=== PATIENT | female | born 1960 | race Caucasian/White ===

== ENCOUNTER 2023-11-06 18:17 | Inpatient (IN) | payer OTHER, MEDICAID, SELFPAY ==
[2023-11-06] VITALS (17 sets, daily range): BP systolic 134–160; BP diastolic 69–87; PULSE 71; RESP 18; TEMP 36.7; O2SAT 95–100
--- NOTE | ~2023-11-06 | US_ITS ---
EXAMINATION: US venous doppler LE RT DATE: 11/06/2023 22:42 INDICATION: Right lower limb pain and swelling. TECHNIQUE: Grayscale ultrasound images without and with compression and Doppler ultrasound images of the right lower extremity veins were obtained. COMPARISON: None. FINDINGS: The visualized portions of right common femoral vein, profunda (deep) femoral vein, femoral vein, pop liteal vein, peroneal veins, posterior tibial veins, and greater saphenous vein outflow are patent. IMPRESSION: 1. No deep venous thrombosis. Reviewed, dictated and finalized at location E.
--- NOTE | ~2023-11-06 | CT_ITS ---
EXAMINATION: CT ankle RT w con DATE: 11/06/2023 22:53 INDICATION: Right ankle swelling and erythema. TECHNIQUE: Computed tomography (CT) of the right ankle was performed with 100 mL Omnipaque 350 intrav enous contrast. Automated exposure control and iterative reconstruction technique were employed. The dose-length product was 441.71 mGy-cm. COMPARISON: None FINDINGS: There is a comminuted fracture of the talus. The main distal fracture fragment demonstrates 3 mm superior displacement. Internal fixation is seen with multiple screws. There is mild incongruen ce of the articular surface of the talar dome. There are bone fragments distal to medial malleolus. T here is a comminuted fractured of distal fibula. The main distal fracture fragment demonstrates 3 mm posterior displacement. There is internal fixation with plate and screws. There is a skin defect post erior to the Achilles tendon. There is soft tissue swelling about the ankle. IMPRESSION: 1. Comminuted fracture of talus with internal fixation. 2. Comminuted fractured of distal fibula with internal fixation. 3. No specific evidence of osteomyelitis. Reviewed, dictated and finalized at location E.
[2023-11-06] MEDS: MORPHINE SULFATE (*CRX) 4 MG/ML INJ IV PUSH (21:26)
[2023-11-06] MEDS: ONDANSETRON INJ 4 MG/2 ML VIAL IV PUSH (21:26)
--- NOTE | 2023-11-06 21:27 | PC.NURSE ---
blood cultures x 2 draw. 1st set left ac and 2nd set rt ac. Lora label sent to lab with blood cultures.
[2023-11-06 21:32] LABS: Basophils Percent Auto 0.3 % (0.2-1.2); Eosinophils Absolute Auto 0.2 K/mm3 (0-0.3); Hematocrit 38.1 % (37.0-47.0); Hemoglobin 11.8 g/dL (12.0-15.0); Immature Granulocyte Absolute 0.02 K/mm3 (0.00-0.031); Immature Granulocyte Percent A 0.2 % (0-0.5); Lymphocytes Absolute Auto 3.78 K/mm3 (0.9-3.2); Lymphocytes Percent Auto 42.8 % (18.3-44.2); Mean Corpuscular Hemoglobin 29.9 pg (26-34); Mean Corpuscular Volume 96.5 fl (80-100); Mean Platelet Volume 9.1 fl (7.4-10.4); Monocytes Absolute Auto 0.7 K/mm3 (0.1-0.6); Neutrophils Absolute Auto 4.1 K/mm3 (1.3-6.7); Neutrophils Percent Auto 46.7 % (45.5-73.1); Platelet Count Result 212 k/mm3 (150-375); Red Blood Count 3.95 M/mm3 (4.2-5.4); Red Cell Distribution Width 14.6 % (11.5-14.5); White Blood Count 8.8 K/mm3 (4.5-10.0)
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
[2023-11-06 21:57] LABS: CRP < 0.5 mg/dL (<1.0)
[2023-11-06 22:11] LABS: Lactic Acid Reflex 0.6 mmol/L (0.7-2.0)
[2023-11-06 22:36] LABS: Erythrocyte Sedimentation Rate 29 mm/hr (0-20)
[2023-11-06 22:45] LABS: Anion Gap 7 mmol/L (4-12); Blood Urea Nitrogen 15 mg/dL (7-17); Carbon Dioxide 28 mmol/L (22-30); Chloride 104 mmol/L (98-107); Estimated CRCL calculation 73 ml/min; Estimated Glomerular Filt Rate > 60; Glucose 90 mg/dL (65-110); Potassium 3.6 mmol/L (3.4-5.0); Sodium 139 mmol/L (137-145)
[2023-11-06 22:47] LABS: Estimated CRCL calculation 65 ml/min; Estimated Glomerular Filt Rate > 60
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
[2023-11-07] MEDS: VANCOMYCIN 1,500 MG/NS 500 ML 1,500 MG/500 ML BAG 250 MG IVPB ×2 (00:52→18:08)
[2023-11-07] MEDS: SODIUM CHLORIDE 0.9% IV 1,000 ML 100 ML IV CONT ×2 (00:56→11:06)
[2023-11-07] MEDS: MORPHINE SULFATE (*CRX) 4 MG/ML INJ IV PUSH ×6 (01:02→20:11)
[2023-11-07 01:27] VITALS: BP 146/76; PULSE 69; RESP 18; O2SAT 95
[2023-11-07 01:37] VITALS: BP 155/65; PULSE 75; RESP 18; TEMP 36.8; O2SAT 100; BMI 30.3
--- NOTE | 2023-11-07 01:39 | ADMGEN ---
This patient, Maira Maloney, was admitted to 2 Medical Room 259-. Patient/family oriented to hospital policies and general routines including ID bracelet, bed and alarms, visiting hours, pain management, procedures, bathroom and other care routines, personal items, smoking policy, room service/diet, and visiting hours. Information on how to activate the Rapid Response Team has been discussed. Patient/Family are encouraged to report perceived risks to care and to ask questions if they do not understand what they are told or what they should do.
[2023-11-07 01:40] LABS: Alanine Aminotransferase 13 U/L (6-35); Albumin Level 3.4 g/dL (3.5-5.1); Alkaline Phosphatase 194 U/L (38-126); Anion Gap 7 mmol/L (4-12); Aspartate Amino Transferase 22 U/L (14-36); Bilirubin,Total 0.4 mg/dL (0.2-1.3); Blood Urea Nitrogen 14 mg/dL (7-17); Calcium 9.7 mg/dL (8.4-10.2); Carbon Dioxide 27 mmol/L (22-30); Chloride 105 mmol/L (98-107); Estimated CRCL calculation 73 ml/min; Estimated Glomerular Filt Rate > 60; Glucose 92 mg/dL (65-110); Potassium 3.8 mmol/L (3.4-5.0); Sodium 139 mmol/L (137-145)
[2023-11-07 05:25] VITALS: BP 122/67; PULSE 64; RESP 18; TEMP 36.6; O2SAT 93
[2023-11-07] MEDS: PANTOPRAZOLE 40 MG TABLET PO (08:02)
[2023-11-07] MEDS: ENOXAPARIN 40 MG/0.4 ML SYRINGE SUB-Q (08:02)
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
[2023-11-07 08:56] LABS: Basophils Percent Auto 0.4 % (0.2-1.2); Eosinophils Absolute Auto 0.2 K/mm3 (0-0.3); Eosinophils Percent Auto 2.5 % (0-4.4); Hematocrit 35.6 % (37.0-47.0); Hemoglobin 10.9 g/dL (12.0-15.0); Immature Granulocyte Absolute 0.02 K/mm3 (0.00-0.031); Immature Granulocyte Percent A 0.3 % (0-0.5); Lymphocytes Absolute Auto 3.26 K/mm3 (0.9-3.2); Lymphocytes Percent Auto 47.3 % (18.3-44.2); Mean Corpuscular HGB Conc 30.6 g/dl (32-36); Mean Corpuscular Hemoglobin 30.1 pg (26-34); Mean Corpuscular Volume 98.3 fl (80-100); Mean Platelet Volume 9.2 fl (7.4-10.4); Monocytes Absolute Auto 0.6 K/mm3 (0.1-0.6); Monocytes Percent Auto 9.3 % (2.6-8.5); Neutrophils Absolute Auto 2.8 K/mm3 (1.3-6.7); Neutrophils Percent Auto 40.2 % (45.5-73.1); Platelet Count Result 194 k/mm3 (150-375); Red Blood Count 3.62 M/mm3 (4.2-5.4); Red Cell Distribution Width 14.6 % (11.5-14.5); White Blood Count 6.9 K/mm3 (4.5-10.0)
[2023-11-07] MEDS: ASPIRIN 81 MG ENTERIC TABLET PO (08:58)
[2023-11-07 09:05] LABS: Alanine Aminotransferase 12 U/L (6-35); Albumin Level 3.3 g/dL (3.5-5.1); Alkaline Phosphatase 185 U/L (38-126); Anion Gap 5 mmol/L (4-12); Aspartate Amino Transferase 20 U/L (14-36); Bilirubin,Total 0.4 mg/dL (0.2-1.3); Blood Urea Nitrogen 13 mg/dL (7-17); Calcium 9.2 mg/dL (8.4-10.2); Carbon Dioxide 27 mmol/L (22-30); Chloride 108 mmol/L (98-107); Estimated CRCL calculation 85 ml/min; Estimated Glomerular Filt Rate > 60; Glucose 86 mg/dL (65-110); Potassium 3.8 mmol/L (3.4-5.0); Sodium 140 mmol/L (137-145)
[2023-11-07 14:00] VITALS: BP 126/63; PULSE 72; RESP 14; TEMP 36.8; O2SAT 94
[2023-11-07] MEDS: ACETAMINOPHEN 325 MG TABLET 650 MG PO (16:28)
[2023-11-07] MEDS: CITALOPRAM HYDROBROMIDE 20 MG TABLET PO (20:10)
[2023-11-07 21:18] VITALS: BP 152/68; PULSE 61; RESP 20; TEMP 36.5; O2SAT 99
[2023-11-07 21:38] LABS: Hemoglobin A1C 4.5 % (<5.7)
[2023-11-07] MEDS: HYDROcodone/acetaminophen (*CRX) 5-325 MG TABLET 1 TAB PO (22:40)
[2023-11-08] MEDS: SODIUM CHLORIDE 0.9% IV 1,000 ML 100 ML IV CONT ×3 (00:07→23:32)
[2023-11-08] MEDS: MORPHINE SULFATE (*CRX) 4 MG/ML INJ IV PUSH ×5 (00:08→21:54)
[2023-11-08 01:09] LABS: Alanine Aminotransferase 13 U/L (6-35); Albumin Level 3.1 g/dL (3.5-5.1); Alkaline Phosphatase 143 U/L (38-126); Anion Gap 3 mmol/L (4-12); Aspartate Amino Transferase 24 U/L (14-36); Bilirubin,Total 0.4 mg/dL (0.2-1.3); Blood Urea Nitrogen 13 mg/dL (7-17); Calcium 9.3 mg/dL (8.4-10.2); Carbon Dioxide 30 mmol/L (22-30); Chloride 106 mmol/L (98-107); Estimated CRCL calculation 74 ml/min; Estimated Glomerular Filt Rate > 60; Glucose 89 mg/dL (65-110); Sodium 139 mmol/L (137-145)
[2023-11-08] MEDS: GABAPENTIN 300 MG CAPSULE PO ×2 (03:34→20:20)
[2023-11-08 06:00] VITALS: BP 150/69; PULSE 53; RESP 18; TEMP 36.2; O2SAT 96
[2023-11-08 06:15] LABS: Basophils Percent Auto 0.4 % (0.2-1.2); Eosinophils Absolute Auto 0.1 K/mm3 (0-0.3); Eosinophils Percent Auto 2.5 % (0-4.4); Hematocrit 33.1 % (37.0-47.0); Immature Granulocyte Absolute 0.01 K/mm3 (0.00-0.031); Immature Granulocyte Percent A 0.2 % (0-0.5); Lymphocytes Absolute Auto 2.77 K/mm3 (0.9-3.2); Lymphocytes Percent Auto 48.9 % (18.3-44.2); Mean Corpuscular HGB Conc 30.2 g/dl (32-36); Mean Corpuscular Hemoglobin 29.9 pg (26-34); Mean Corpuscular Volume 99.1 fl (80-100); Mean Platelet Volume 9.8 fl (7.4-10.4); Monocytes Absolute Auto 0.5 K/mm3 (0.1-0.6); Neutrophils Absolute Auto 2.2 K/mm3 (1.3-6.7); Platelet Count Result 161 k/mm3 (150-375); Red Blood Count 3.34 M/mm3 (4.2-5.4); Red Cell Distribution Width 14.6 % (11.5-14.5); White Blood Count 5.7 K/mm3 (4.5-10.0)
[2023-11-08 07:09] LABS: Alanine Aminotransferase 14 U/L (6-35); Albumin Level 3.2 g/dL (3.5-5.1); Alkaline Phosphatase 148 U/L (38-126); Anion Gap 3 mmol/L (4-12); Aspartate Amino Transferase 29 U/L (14-36); Bilirubin,Total 0.4 mg/dL (0.2-1.3); Blood Urea Nitrogen 11 mg/dL (7-17); Calcium 9.3 mg/dL (8.4-10.2); Carbon Dioxide 29 mmol/L (22-30); Chloride 106 mmol/L (98-107); Estimated CRCL calculation 85 ml/min; Estimated Glomerular Filt Rate > 60; Glucose 82 mg/dL (65-110); Potassium 4.1 mmol/L (3.4-5.0); Sodium 138 mmol/L (137-145)
[2023-11-08] MEDS: PANTOPRAZOLE 40 MG TABLET PO (08:30)
[2023-11-08] MEDS: ASPIRIN 81 MG ENTERIC TABLET PO (08:30)
[2023-11-08] MEDS: ENOXAPARIN 40 MG/0.4 ML SYRINGE SUB-Q (08:30)
[2023-11-08] MEDS: HYDROcodone/acetaminophen (*CRX) 5-325 MG TABLET 1 TAB PO ×3 (08:31→20:20)
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
[2023-11-08] MEDS: VANCOMYCIN 1,500 MG/NS 500 ML 1,500 MG/500 ML BAG 250 MG IVPB (12:28)
[2023-11-08 14:00] VITALS: BP 148/66; PULSE 57; RESP 12; TEMP 36; O2SAT 96
[2023-11-08] MEDS: CITALOPRAM HYDROBROMIDE 20 MG TABLET PO (20:20)
[2023-11-08 21:32] VITALS: BP 145/58; PULSE 60; RESP 18; TEMP 36.1; O2SAT 96
[2023-11-09] MEDS: HYDROcodone/acetaminophen (*CRX) 5-325 MG TABLET 1 TAB PO ×3 (04:36→20:21)
[2023-11-09 05:54] LABS: Basophils Percent Auto 0.7 % (0.2-1.2); Eosinophils Absolute Auto 0.1 K/mm3 (0-0.3); Eosinophils Percent Auto 2.6 % (0-4.4); Hematocrit 32.4 % (37.0-47.0); Hemoglobin 9.9 g/dL (12.0-15.0); Immature Granulocyte Absolute 0.01 K/mm3 (0.00-0.031); Immature Granulocyte Percent A 0.2 % (0-0.5); Lymphocytes Absolute Auto 1.61 K/mm3 (0.9-3.2); Lymphocytes Percent Auto 38.2 % (18.3-44.2); Mean Corpuscular HGB Conc 30.6 g/dl (32-36); Mean Corpuscular Volume 98.2 fl (80-100); Mean Platelet Volume 9.5 fl (7.4-10.4); Monocytes Absolute Auto 0.4 K/mm3 (0.1-0.6); Monocytes Percent Auto 8.3 % (2.6-8.5); Neutrophils Absolute Auto 2.1 K/mm3 (1.3-6.7); Platelet Count Result 135 k/mm3 (150-375); Red Cell Distribution Width 14.2 % (11.5-14.5); White Blood Count 4.2 K/mm3 (4.5-10.0)
[2023-11-09 06:00] VITALS: BP 147/66; PULSE 71; RESP 16; TEMP 36.1; O2SAT 94
[2023-11-09 06:07] LABS: Alanine Aminotransferase 15 U/L (6-35); Albumin Level 3.1 g/dL (3.5-5.1); Alkaline Phosphatase 138 U/L (38-126); Anion Gap 2 mmol/L (4-12); Aspartate Amino Transferase 29 U/L (14-36); Bilirubin,Total 0.6 mg/dL (0.2-1.3); Blood Urea Nitrogen 12 mg/dL (7-17); Calcium 9.3 mg/dL (8.4-10.2); Carbon Dioxide 30 mmol/L (22-30); Chloride 108 mmol/L (98-107); Estimated CRCL calculation 85 ml/min; Estimated Glomerular Filt Rate > 60; Glucose 92 mg/dL (65-110); Potassium 3.9 mmol/L (3.4-5.0); Sodium 140 mmol/L (137-145)
[2023-11-09 06:19] LABS: Vancomycin Trough 10.9 ug/mL (10.0-20.0)
[2023-11-09] MEDS: GABAPENTIN 300 MG CAPSULE PO ×2 (08:49→17:01)
[2023-11-09] MEDS: ASPIRIN 81 MG ENTERIC TABLET PO (08:49)
[2023-11-09] MEDS: PANTOPRAZOLE 40 MG TABLET PO (08:49)
[2023-11-09] MEDS: MORPHINE SULFATE (*CRX) 4 MG/ML INJ IV PUSH (08:50)
[2023-11-09] MEDS: ENOXAPARIN 40 MG/0.4 ML SYRINGE SUB-Q (08:50)
[2023-11-09] MEDS: VANCOMYCIN 1,500 MG/NS 500 ML 1,500 MG/500 ML BAG 250 MG IVPB (08:50)
[2023-11-09 14:00] VITALS: BP 152/58; PULSE 70; RESP 21; TEMP 36.9; O2SAT 93
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
[2023-11-09] MEDS: ACETAMINOPHEN 325 MG TABLET 650 MG PO ×2 (17:01→22:35)
[2023-11-09] MEDS: KETOROLAC 30 MG/ML VIAL (*BKC) IV PUSH (18:36)
[2023-11-09] MEDS: CITALOPRAM HYDROBROMIDE 20 MG TABLET PO (20:21)
[2023-11-09 21:34] VITALS: BP 101/72; PULSE 64; RESP 18; TEMP 36.1; O2SAT 96
[2023-11-10] MEDS: VANCOMYCIN 1,500 MG/NS 500 ML 1,500 MG/500 ML BAG 250 MG IVPB ×2 (01:48→21:40)
[2023-11-10] MEDS: GABAPENTIN 300 MG CAPSULE PO ×2 (02:22→20:29)
[2023-11-10] MEDS: HYDROcodone/acetaminophen (*CRX) 5-325 MG TABLET 1 TAB PO ×4 (02:22→22:23)
[2023-11-10] MEDS: ACETAMINOPHEN 325 MG TABLET 650 MG PO ×2 (04:45→20:29)
[2023-11-10 06:00] VITALS: BP 151/65; PULSE 56; RESP 16; TEMP 36.7; O2SAT 95
[2023-11-10 06:29] LABS: Basophils Percent Auto 0.7 % (0.2-1.2); Eosinophils Absolute Auto 0.1 K/mm3 (0-0.3); Eosinophils Percent Auto 3.4 % (0-4.4); Hematocrit 33.8 % (37.0-47.0); Hemoglobin 10.3 g/dL (12.0-15.0); Immature Platelet Fraction Pct 3.1 % (0.9-11.2); Lymphocytes Absolute Auto 1.92 K/mm3 (0.9-3.2); Lymphocytes Percent Auto 47.3 % (18.3-44.2); Mean Corpuscular HGB Conc 30.5 g/dl (32-36); Mean Corpuscular Hemoglobin 29.2 pg (26-34); Mean Corpuscular Volume 95.8 fl (80-100); Mean Platelet Volume 9.5 fl (7.4-10.4); Monocytes Absolute Auto 0.4 K/mm3 (0.1-0.6); Monocytes Percent Auto 9.4 % (2.6-8.5); Neutrophils Absolute Auto 1.6 K/mm3 (1.3-6.7); Neutrophils Percent Auto 39.2 % (45.5-73.1); Platelet Count Result 150 k/mm3 (150-375); Red Blood Count 3.53 M/mm3 (4.2-5.4); Red Cell Distribution Width 13.9 % (11.5-14.5); White Blood Count 4.1 K/mm3 (4.5-10.0)
[2023-11-10 06:38] LABS: Alanine Aminotransferase 18 U/L (6-35); Albumin Level 3.3 g/dL (3.5-5.1); Alkaline Phosphatase 134 U/L (38-126); Anion Gap 3 mmol/L (4-12); Aspartate Amino Transferase 33 U/L (14-36); Bilirubin,Total 0.7 mg/dL (0.2-1.3); Blood Urea Nitrogen 11 mg/dL (7-17); Calcium 9.3 mg/dL (8.4-10.2); Carbon Dioxide 30 mmol/L (22-30); Chloride 108 mmol/L (98-107); Estimated CRCL calculation 85 ml/min; Estimated Glomerular Filt Rate > 60; Glucose 91 mg/dL (65-110); Potassium 3.6 mmol/L (3.4-5.0); Sodium 141 mmol/L (137-145)
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
[2023-11-10] MEDS: PANTOPRAZOLE 40 MG TABLET PO (08:51)
[2023-11-10] MEDS: ASPIRIN 81 MG ENTERIC TABLET PO (08:51)
[2023-11-10] MEDS: ENOXAPARIN 40 MG/0.4 ML SYRINGE SUB-Q (08:51)
--- NOTE | 2023-11-10 14:48 | PC.NURSE ---
Pt bed alarm sounding. I knocked and entered the room, introduced myself as the charge nurse, and explained that we are trying to keep her safe and keeping the bed alarm on. She was interrupting me every time I tried to speak. She said that she is ADD & has a hard time sitting still, but said that she isn't getting out of bed. I reiterated that we want her to use her call light when she needs to get up. She said she isn't very patient and can't wait for someone to come to her room. I asked her why she thinks we would be concerned about her getting out of bed without using the call light first. She said I already fell at the hospital in [place] and hit my head. So, I asked her if she understands why we don't want her getting up without the light because we don't want her to fall and get hit her head or worse. She said she understood. I turned the bed alarm on again. She laid in the bed and set the alarm off again. I turned it off and back on again. I thanked her and left the room.
--- NOTE | 2023-11-10 15:08 | PC.NURSE ---
Pt called on the call light and requested a wheelchair. She said her caregiver was in the room and was going to take her outside. I explaiend that she can't go outside right now. She said that she went outside the hospital when she was in the hospital in [place] and in [place], [place]. I said that it is our policy to not allow patients to leave the unit when they are admitted because they are no longer under the supervision of the nurse or the hospital staff. She said that she didn't think that was the policy at the hospitals in [place] or any other hospitals. I explained that both the hospitals that I work at have this policy for patient safety. She said, Well, you don't need to be snippy. I apologized that she though I was being snippy, but I was just letting her know what our safety policy is. I don't know whether another hospital has another policy. I asked her to please use the call light before getting out of bed. Maira said, You are dismissed. You can go now. I left the room and asked the nurse to go back in and make sure the bed alarm is set.
[2023-11-10 16:22] VITALS: BP 149/62; PULSE 57; RESP 16; TEMP 36.4; O2SAT 98
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
[2023-11-10] MEDS: NICOTINE (*PBKC) 21 MG PATCH 1 PATCH TRANSDERM (18:45)
[2023-11-10 19:58] LABS: Vancomycin Trough 10.9 ug/mL (10.0-20.0)
[2023-11-10] MEDS: CITALOPRAM HYDROBROMIDE 20 MG TABLET PO (20:29)
[2023-11-10 22:00] VITALS: BP 177/71; PULSE 60; RESP 18; TEMP 36.8; O2SAT 100
[2023-11-11] MEDS: HYDROcodone/acetaminophen (*CRX) 5-325 MG TABLET 1 TAB PO ×3 (04:30→18:17)
[2023-11-11] MEDS: GABAPENTIN 300 MG CAPSULE PO ×2 (04:30→20:14)
[2023-11-11 05:27] LABS: Basophils Percent Auto 0.6 % (0.2-1.2); Eosinophils Absolute Auto 0.1 K/mm3 (0-0.3); Eosinophils Percent Auto 2.9 % (0-4.4); Hematocrit 36.3 % (37.0-47.0); Immature Granulocyte Absolute 0.01 K/mm3 (0.00-0.031); Immature Granulocyte Percent A 0.2 % (0-0.5); Lymphocytes Absolute Auto 2.05 K/mm3 (0.9-3.2); Lymphocytes Percent Auto 43.2 % (18.3-44.2); Mean Corpuscular HGB Conc 30.3 g/dl (32-36); Mean Corpuscular Hemoglobin 29.3 pg (26-34); Mean Corpuscular Volume 96.8 fl (80-100); Mean Platelet Volume 9.3 fl (7.4-10.4); Monocytes Absolute Auto 0.5 K/mm3 (0.1-0.6); Monocytes Percent Auto 10.1 % (2.6-8.5); Platelet Count Result 149 k/mm3 (150-375); Red Blood Count 3.75 M/mm3 (4.2-5.4); Red Cell Distribution Width 13.9 % (11.5-14.5); White Blood Count 4.8 K/mm3 (4.5-10.0)
[2023-11-11 05:39] LABS: Alanine Aminotransferase 20 U/L (6-35); Albumin Level 3.6 g/dL (3.5-5.1); Alkaline Phosphatase 163 U/L (38-126); Anion Gap 6 mmol/L (4-12); Aspartate Amino Transferase 33 U/L (14-36); Bilirubin,Total 0.5 mg/dL (0.2-1.3); Blood Urea Nitrogen 11 mg/dL (7-17); Calcium 9.8 mg/dL (8.4-10.2); Carbon Dioxide 32 mmol/L (22-30); Chloride 103 mmol/L (98-107); Estimated CRCL calculation 85 ml/min; Estimated Glomerular Filt Rate > 60; Glucose 101 mg/dL (65-110); Potassium 3.4 mmol/L (3.4-5.0); Sodium 141 mmol/L (137-145)
[2023-11-11 06:00] VITALS: BP 175/94; PULSE 60; RESP 18; TEMP 36.4; O2SAT 100
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
[2023-11-11 08:40] VITALS: PULSE 62; RESP 20; O2SAT 96
[2023-11-11] MEDS: PANTOPRAZOLE 40 MG TABLET PO (08:44)
[2023-11-11] MEDS: LOSARTAN POTASSIUM 12.5 MG TABLET PO (08:44)
[2023-11-11] MEDS: ASPIRIN 81 MG ENTERIC TABLET PO (08:44)
[2023-11-11] MEDS: ENOXAPARIN 40 MG/0.4 ML SYRINGE SUB-Q (08:45)
[2023-11-11] MEDS: NICOTINE (*PBKC) 21 MG PATCH 1 PATCH TRANSDERM (08:45)
[2023-11-11 14:00] VITALS: BP 172/69; PULSE 62; RESP 18; TEMP 36.3; O2SAT 98
[2023-11-11 17:43] VITALS: BP 151/70
[2023-11-11] MEDS: CITALOPRAM HYDROBROMIDE 20 MG TABLET PO (20:14)
[2023-11-11 22:00] VITALS: BP 179/90; PULSE 60; RESP 18; TEMP 36.6; O2SAT 96
[2023-11-11] MEDS: ACETAMINOPHEN 325 MG TABLET 650 MG PO (23:23)
[2023-11-12] MEDS: HYDROcodone/acetaminophen (*CRX) 5-325 MG TABLET 1 TAB PO ×3 (00:06→13:21)
[2023-11-12 04:35] LABS: Basophils Percent Auto 0.4 % (0.2-1.2); Eosinophils Absolute Auto 0.1 K/mm3 (0-0.3); Eosinophils Percent Auto 2.5 % (0-4.4); Hematocrit 33.6 % (37.0-47.0); Hemoglobin 10.6 g/dL (12.0-15.0); Immature Granulocyte Absolute 0.01 K/mm3 (0.00-0.031); Immature Granulocyte Percent A 0.2 % (0-0.5); Lymphocytes Absolute Auto 2.39 K/mm3 (0.9-3.2); Lymphocytes Percent Auto 42.6 % (18.3-44.2); Mean Corpuscular HGB Conc 31.5 g/dl (32-36); Mean Corpuscular Volume 95.2 fl (80-100); Mean Platelet Volume 9.5 fl (7.4-10.4); Monocytes Absolute Auto 0.6 K/mm3 (0.1-0.6); Monocytes Percent Auto 10.9 % (2.6-8.5); Neutrophils Absolute Auto 2.4 K/mm3 (1.3-6.7); Neutrophils Percent Auto 43.4 % (45.5-73.1); Platelet Count Result 159 k/mm3 (150-375); Red Blood Count 3.53 M/mm3 (4.2-5.4); Red Cell Distribution Width 14.3 % (11.5-14.5); White Blood Count 5.6 K/mm3 (4.5-10.0)
[2023-11-12 04:47] LABS: Alanine Aminotransferase 20 U/L (6-35); Albumin Level 3.3 g/dL (3.5-5.1); Alkaline Phosphatase 147 U/L (38-126); Anion Gap 5 mmol/L (4-12); Aspartate Amino Transferase 33 U/L (14-36); Bilirubin,Total 0.6 mg/dL (0.2-1.3); Blood Urea Nitrogen 10 mg/dL (7-17); Calcium 9.8 mg/dL (8.4-10.2); Carbon Dioxide 30 mmol/L (22-30); Chloride 105 mmol/L (98-107); Estimated CRCL calculation 74 ml/min; Estimated Glomerular Filt Rate > 60; Glucose 101 mg/dL (65-110); Potassium 3.4 mmol/L (3.4-5.0); Sodium 140 mmol/L (137-145)
[2023-11-12 06:00] VITALS: BP 139/63; PULSE 60; RESP 18; TEMP 36.8; O2SAT 96
[2023-11-12] MEDS: ASPIRIN 81 MG ENTERIC TABLET PO (08:53)
[2023-11-12] MEDS: NICOTINE (*PBKC) 21 MG PATCH 1 PATCH TRANSDERM (08:53)
[2023-11-12] MEDS: ENOXAPARIN 40 MG/0.4 ML SYRINGE SUB-Q (08:53)
[2023-11-12] MEDS: PANTOPRAZOLE 40 MG TABLET PO (08:53)
[2023-11-12] MEDS: LOSARTAN POTASSIUM 12.5 MG TABLET PO (08:53)
[2023-11-12 14:00] VITALS: BP 153/73; PULSE 69; RESP 18; TEMP 36.7; O2SAT 100
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
== END 2023-11-12 16:30 | disposition home or self-care (01) | DRG 920 ==
LOC: ANHED 11-07 00:43 → ANH2MED 11-07 01:11
PROVIDERS: Emergency Medicine; Admitting Provider Internal Medicine; Emergency Provider Physician Assistant; Visit Provider Student in an Organized Health Care Education/Training Program
DX: L76.82 Other postprocedural complications of skin and subcutaneous tissue (principal); L03.115 Cellulitis of right lower limb; B96.89 Other specified bacterial agents as the cause of diseases classified elsewhere; I10 Essential (primary) hypertension; I73.9 Peripheral vascular disease, unspecified; H53.2 Diplopia; S92.101D Unspecified fracture of right talus, subsequent encounter for fracture with routine healing; S82.451D Displaced comminuted fracture of shaft of right fibula, subsequent encounter for closed fracture with routine healing; V89.2XXD Person injured in unspecified motor-vehicle accident, traffic, subsequent encounter; F17.210 Nicotine dependence, cigarettes, uncomplicated
CPT/HCPCS: 36415; 73701; 80048; 80053; 80202; 83036; 83605; 85025; 85055; 85652; 86140; 87040; 87070; 87186; 87205; 93971; 96361; 96365; 96366; 96375; 96376; 97110; 97116; 97161; 97165; 97530; 97535; 99285; A9270; G0378; J1650; J1885; J2270; J2405; J3370; J7030; Q9967